=== PATIENT | female | born 1985 | race Caucasian/White ===

== ENCOUNTER → 2024-05-15 08:27 | Outpatient (BNVA) | payer OTHER, SELFPAY | PROVIDERS: Visit Provider Registered Nurse | DX: S56.912A Strain of unspecified muscles, fascia and tendons at forearm level, left arm, initial encounter (principal); X50.0XXA Overexertion from strenuous movement or load, initial encounter | CPT/HCPCS: 99202 ==

== ENCOUNTER → 2024-05-19 10:45 | Outpatient (BNVA) | payer OTHER, SELFPAY | PROVIDERS: Visit Provider Registered Nurse | DX: S56.912A Strain of unspecified muscles, fascia and tendons at forearm level, left arm, initial encounter (principal); X50.0XXA Overexertion from strenuous movement or load, initial encounter | CPT/HCPCS: 99213 ==

== ENCOUNTER → 2024-06-05 10:58 | Outpatient (BNVA) | payer OTHER, SELFPAY | PROVIDERS: Visit Provider Registered Nurse | DX: S56.912D Strain of unspecified muscles, fascia and tendons at forearm level, left arm, subsequent encounter (principal); X50.0XXD Overexertion from strenuous movement or load, subsequent encounter | CPT/HCPCS: 99213 ==

== ENCOUNTER → 2024-06-26 12:28 | Outpatient (BNVA) | payer OTHER, SELFPAY | PROVIDERS: Visit Provider Registered Nurse | DX: S56.912D Strain of unspecified muscles, fascia and tendons at forearm level, left arm, subsequent encounter (principal); X50.0XXD Overexertion from strenuous movement or load, subsequent encounter | CPT/HCPCS: 99213 ==

== ENCOUNTER 2024-07-14 11:21 | Outpatient (RCR) | payer OTHER, SELFPAY ==
--- NOTE | 2024-06-11 15:23 | MHC.OT.EP ---
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 She reported finishing the night of work but had increased pain w/ pushing and pulling. She saw work connection at [facility] a few days later. She reported originally having pain in her shoulder and FA , but now reports the pain is localized in her FA. Pt saw PT but they were cancelled by the PT in order for pt. to see OT instead. She is currently on light duty avoiding lifting over 15 lbs as directed by . Pt has been referred to skilled OT therapy for increased functional use of her L UE to RTW Full@ full duty safely Frequency and Duration: The patient will be seen 2 xs a week for 6 weeks Short Term Goals: Pt will be complaint w/ her HEP Pt will be complaint w/ use of modalities IE/HEAT to decrease pain Pt will report 2/10 pain w/ activity Fci Goals: Pt will report 0/10 pain w/ weight bearing Pt will RTW full duty w/out restrictions Pt will use her L UE to carry a grocery bag w/ out pain/difficulty Treatment Plan: Therapeutic Exercise Therapeutic Activity Home Exercise Program Splinting Neuro Re-ed Patient Education Desensitization/Sensory Re-ed Edema Control ADL Training Ultrasound NMES Iontophoresis Paraffin Fluidotherapy MHP Cold Packs Joint Mobilization Soft Tissue Mobilization Kinesiotaping Other (see comments) Electronically Signed By: Anuradha Nielson OTR/L Please Sign and return to therapist. Thank you once again for your referral.
== END 2024-08-04 08:21 | disposition home or self-care (01) ==
LOC: HO.OT 11:21
PROVIDERS: Visit Provider Registered Nurse
DX: S56.912D Strain of unspecified muscles, fascia and tendons at forearm level, left arm, subsequent encounter (principal)
CPT/HCPCS: 97110; 97140; 97165; 97530

== ENCOUNTER → 2024-07-14 12:03 | Outpatient (BNVA) | payer OTHER, SELFPAY | PROVIDERS: Visit Provider Registered Nurse | DX: S56.912D Strain of unspecified muscles, fascia and tendons at forearm level, left arm, subsequent encounter (principal); X50.0XXD Overexertion from strenuous movement or load, subsequent encounter; Z02.79 Encounter for issue of other medical certificate | CPT/HCPCS: 99213 ==